=== PATIENT | female | born 1995 | race African-American/Black ===

== ENCOUNTER 2020-10-08 15:42 | Emergency (ER) | payer BC ==
[~2020-10-08] VITALS: Ht 167.6 cm; Wt 61.0 kg
[2020-10-08] MEDS ORDERED: ACETAMINOPHEN 325MG TABLET PO ONE (19:45)
[2020-10-08 21:11] LABS: BASOPHILS % 0.3 % (0.0-2.0); EOSINOPHILS % 0.9 % (0.0-5.0); HEMATOCRIT. 41.2 % (36.0-48.0); HEMOGLOBIN. 13.9 g/dL (12.0-16.0); LYMPHOCYTES % 24.2 % (20.0-50.0); MEAN CORPUSCULAR HEMOGLOBIN 31.6 pg (28.0-32.0); MEAN CORPUSCULAR VOLUME 93.8 fL (81.0-99.0); MEAN PLATELET VOLUME 7.7 fl (7.4-10.4); MONOCYTES % 7.1 % (2.0-8.0); NEUTROPHILS % 67.5 % (40.0-76.0); PLATELET 318 x1000/uL (130-400); RED CELL DISTRIBUTION WIDTH 13.1 % (11.6-14.6)
[2020-10-08 21:16] LABS: CHLORIDE 106 mEq/L (98-107)
[2020-10-08 21:57] VITALS: BP 124/76
== END 2020-10-08 22:04 | disposition home or self-care (01) ==
LOC: ER 15:42
DX: S06.0X0A Concussion without loss of consciousness, initial encounter (principal); S20.219A Contusion of unspecified front wall of thorax, initial encounter; G89.11 Acute pain due to trauma; V49.49XA Driver injured in collision with other motor vehicles in traffic accident, initial encounter; W22.11XA Striking against or struck by driver side automobile airbag, initial encounter; Y93.89 Activity, other specified; Y92.488 Other paved roadways as the place of occurrence of the external cause
CPT/HCPCS: 36415; 71045; 80053; 81025; 84484; 85025; 93005; 99285